=== PATIENT | male | born 1975 | race African-American/Black ===

== ENCOUNTER 2025-05-17 11:41 | Inpatient (IN) | payer OTHER ==
[2025-05-17 13:07] VITALS: BMI 21.7
[2025-05-17] MEDS ORDERED: POLYETHYLENE GLYCOL (HEALTHYLAX) 3350 17 GM PACKET PO PRN (13:40)
[2025-05-17] MEDS ORDERED: ACETAMINOPHEN 325 MG TABLET (FP) PO PRN (13:40)
[2025-05-17] MEDS ORDERED: BENZOCAINE/MENTHOL (CHLORASEPTIC ) LOZENGE MM PRN (13:40)
[2025-05-17] MEDS ORDERED: NALOXONE (NARCAN) HCL 4 MG/0.1 ML SPRAY NS PRN (13:40)
[2025-05-17] MEDS ORDERED: BENZONATATE 200 MG CAPSULE PO PRN (13:40)
[2025-05-17] MEDS ORDERED: LOPERAMIDE HCL 2 MG CAPSULE PO PRN (13:40)
[2025-05-17] MEDS ORDERED: guaiFENesin 600 MG TABLET.ER (FP) PO PRN (13:40)
[2025-05-17] MEDS ORDERED: NICOTINE POLACRILEX 2 MG GUM BUC PRN (13:40)
[2025-05-17] MEDS ORDERED: IBUPROFEN 400 MG TABLET (FP) PO PRN (13:40)
[2025-05-17] MEDS ORDERED: MAG HYDROX/AL HYDROX/SIMETH 30 ML UNIT-DOSE CUP PO PRN (13:40)
[2025-05-17] MEDS ORDERED: MAGNESIUM HYDROX 2400MG/30ML ORAL SUSPENSION 30 ML CUP PO PRN (13:40)
[2025-05-17] MEDS ORDERED: NICOTINE POLACRILEX 2 MG LOZENGE BC PRN (13:40)
[2025-05-17] MEDS: THIAMINE 100 MG TABLET PO SCH (21:23)
[2025-05-17] MEDS: MELATONIN 5 MG TABLETS PO SCH (21:23)
[2025-05-17] MEDS: IBUPROFEN 600 MG TABLET (FP) PO PRN (21:24)
[2025-05-17] MEDS: TUBERCULIN PPD 5 TU/0.1ML SYRINGE (IN PATIENT USE ONLY) ID ONE (21:26)
[2025-05-18 09:00] LABS: MCHC 31.7 g/dl (32.3-36.5); MEAN CELL VOLUME 90.5 fl (79.0-92.2); MEAN PLT VOLUME 11.3 fl (9.4-12.4); RDW 13.3 % (12.1-15.9)
[2025-05-18 10:07] LABS: EPI CELLS >36 /uL (0-25.1); HYALINE CASTS 5 /uL (0-3.1); URINE APPEARANCE CLEAR; URINE BACTERIA 157 /uL (0-1359); URINE BILIRUBIN NEGATIVE (NEGATIVE); URINE COLOR YELLOW; URINE GLUCOSE (UA) NEGATIVE (NEGATIVE); URINE KETONE TRACE (NEGATIVE); URINE LEUK ESTERASE 1+ (NEGATIVE); URINE NITRITE NEGATIVE (NEGATIVE); URINE PROTEIN NEGATIVE (NEGATIVE); URINE RBC 11 /uL (0-23.9); URINE UROBILINOGEN 1.0 mg/dL (0.2-1.0); URINE WBC 56 /uL (0-25.8)
[2025-05-18] MEDS: PRENATAL VITAMINS W/ FOLIC ACID TABLET (FP) PO SCH (10:13)
[2025-05-18 10:34] LABS: HCV DIAGNOSTIC IN-HOUSE W/RFLX NON-REACTIVE (NONREACTIVE)
[2025-05-18 10:44] LABS: GLUCOSE,RANDOM 81 mg/dL (74-106); TOT PROT 7.2 g/dl (6.4-8.2)
[2025-05-18 10:45] LABS: CO2 20 mmol/L (21-32)
[2025-05-18 10:47] LABS: ALK PHOS 134 U/L (40-150)
[2025-05-18 10:49] LABS: SGPT/ALT 9 U/L (0-55)
[2025-05-18 10:50] LABS: CREATININE 0.87 mg/dL (0.55-1.3); SGOT/AST 23 U/L (5-34)
[2025-05-18] MEDS: NICOTINE 7 MG/24 HOURS TOPICAL PATCH TD SCH (16:02)
[2025-05-18 20:44] LABS: SYPHILIS W/ RPR CONF NON-REACTIVE (NONREACTIVE)
[2025-05-18] MEDS: LIDOCAINE PATCH REMOVAL MC SCH (21:14)
[2025-05-18] MEDS: MIRTAZAPINE 15 MG TABLET (FP) PO SCH (21:14)
[2025-05-19 05:39] VITALS: TEMP 97.5
[2025-05-19] MEDS: LIDOCAINE 4% PATCH TP PRN (10:16)
[2025-05-20 06:06] VITALS: PULSE 60
[2025-05-20 12:39] VITALS: BP 127/77; RESP 18
== END 2025-05-20 18:30 | disposition left against medical advice (07) | DRG 770 ==
LOC: YASAS 11:41 → Y3W 15:23
PROVIDERS: ADMIT Psychiatry & Neurology Pain Medicine; ATTEND Psychiatry & Neurology Pain Medicine
PROC: HZ42ZZZ Group Counseling for Substance Abuse Treatment, Cognitive-Behavioral (ICD-10-PCS; principal; 2025-05-17)
DX: F14.20 Cocaine dependence, uncomplicated (principal); F10.10 Alcohol abuse, uncomplicated; F17.210 Nicotine dependence, cigarettes, uncomplicated; J44.9 Chronic obstructive pulmonary disease, unspecified; R91.8 Other nonspecific abnormal finding of lung field
CPT/HCPCS: 36415; 71046-TC-FY; 80053; 80307; 81003; 84484; 85027; 86780; 86803; 93005; 93010